=== PATIENT | female | born 1925 | race Caucasian/White ===

== ENCOUNTER 2016-11-08 11:04 | Inpatient (IN) | payer OTHER ==
[~2016-11-08] VITALS: Ht 161.3 cm; Wt 75.2 kg
[~2016-11-08 11:04] MED LIST: ESTR1CRE PV; FELO10TA2 PO; HYDR-4188 EX; LORA-741 PO; PRED10TA PO
[2016-11-08] MEDS ORDERED: SODIUM CHLORIDE 0.9% 1000ML 1,000 ML IV SCH (11:13)
--- NOTE | 2016-11-08 11:19 | EMERGENCY ROOM VISIT NOTE ---
History Report prepared by Maryanne: Ernesto Noble Under the Supervision of: Dr. Parish Adame D.O. First contact with patient: 11:05 Stated Complaint: HEADACHE History of Present Illness The patient is a 89 year old female who presents to the Emergency Room with complaints of a sudden headache beginning one hour prior to arrival. As per daughter, the patient woke up fine and was laughing and talking with family. She states the patient was sitting in a chair, when she complained of a sudden headache on the left side of her head at 10AM. 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 She states the patient took her medication this morning. The daughter associates the patient experiencing slurred speech with today's symptoms. She states the patient has a history of hypertension, polymyalgia rheumatica that she takes prednisone for, and hyperlipidemia. EMS denies the patient experiencing seizure-like activity. The daughter denies the patient having a previous stroke. The patient denies abdominal pain, chest pain, shortness of breath, nausea, and vomiting. The daughter denies the patient experiencing recent falls or recent illness. Source of History: patient Onset: one hour [employer] Position: head Quality: ache Timing: other (sudden) Associated Symptoms: + headache, No SOB, No abdominal pain, No chest pain, No nausea, No vomiting Note: Associated symptoms: slurred speech. Review of Systems See HPI for pertinent positives & negatives. A total of 10 systems reviewed and were otherwise negative. Past Medical & Surgical Medical Problems: (1) Hyperlipidemia (2) Hypertension (3) Neurological symptoms (4) Polymyalgia rheumatica (5) Pulmonary embolism Surgical Problems: (1) Previous back surgery (2) S/P appendectomy (3) S/P hysterectomy Family History Patient reports no known family medical history. Social History Smoking Status: Never Smoker Marital Status: Occupation Status: retired Current/Historical Medications Scheduled Apixaban (Eliquis), 5 MG PO BID Citalopram Hydrobromide (Celexa), 10 MG PO DAILY Estrogens, Conjugated Vaginal (Premarin), 0.5 GM PV 2XWK Felodipine (Plendil), 10 MG PO QAM Hydrocortisone (Topical) (Monistat Soothing Care It), 1 DOSE EX QAM Lorazepam (Ativan), 0.5 MG PO BID Omeprazole (Prilosec), 20 MG PO DAILY Prednisone Tab (Prednisone), 12 MG PO DAILY Scheduled PRN Furosemide (Lasix), 20 MG PO DAILY PRN for fluid accumulation Hydrocodon/Acetaminophen 5MG/300MG (Vicodin (5MG/300MG)), 1 TAB PO Q6H PRN for Pain Allergies Coded Allergies: Beta Adrenergic Blockers (Verified Allergy, Severe, SEVERE DROP IN BP AND HR, 06/26/15) Morphine and Related (Verified Allergy, Severe, DROP IN BP/PULSE - EMS CALLED ONCE AT HOME, 06/26/15) Nitrofurantoin (Verified Allergy, Severe, DROP IN BP AND PULSE, 06/26/15) Vitamin B12 (Verified Allergy, Severe, RED RASH AND NUMB FACIAL EFFECT ALONG WITH KOTZEBUE, 06/26/15) Penicillins (Verified Allergy, Intermediate, red facial rash and numb face , 06/26/15) Sulfa Antibiotics (Verified Allergy, Intermediate, RED FACIAL RASH AND NUMBNESS AND KOTZEBUE AFFECT, 06/26/15) Physical Exam Vital Signs Date Time Temp Pulse Resp B/P Pulse Ox O2 Delivery O2 Flow Rate FiO2 11/08/16 13:00 100 20 131/59 98 11/08/16 12:00 96 16 151/84 97 Room Air 11/08/16 11:54 103 21 96 11/08/16 11:50 97 Room Air 11/08/16 11:49 98 33 97 11/08/16 11:45 101 26 157/90 97 Room Air 11/08/16 11:44 98 29 97 11/08/16 11:39 101 33 98 11/08/16 11:37 156/81 11/08/16 11:29 96 27 98 11/08/16 11:27 100 11/08/16 11:24 171/89 11/08/16 11:11 36.7 110 24 182/128 96 Room Air Physical Exam GENERAL: Patient is awake, alert, and somewhat inappropriate. Follows commands but slowly. EYES: The conjunctivae are clear. The pupils are round and reactive. EARS, NOSE, MOUTH AND THROAT: The nose is without any evidence of any deformity. Mucous membranes are moist tongue is midline. There was no tenderness over temporal arteries. NECK: The neck is nontender and supple. RESPIRATORY: Normal respiratory effort is noted there is no evidence of wheezing rhonchi or rales CARDIOVASCULAR: Regular rate and rhythm noted there no murmurs rubs or gallops normal S1 normal S2 GASTROINTESTINAL: The abdomen is soft. Bowel sounds are present in all quadrants. Abdomen is nontender MUSCULOSKELETAL/EXTREMITIES: There is no evidence of gross deformity full range of motion is noted in the hips and shoulders SKIN: Trace pedal edema bilaterally. There is no obvious evidence of any rash. There are no petechiae, pallor or cyanosis noted. NEUROLOGIC: Patient is oriented to person, place, but not time or situation. Strength was symmetric. There was no facial droop. Speech was clear but inappropriate at times. Medical Decision & Procedures ER Provider Diagnostic Interpretation: Radiology results as stated below per my review and radiologist interpretation: CT OF THE HEAD WITHOUT CONTRAST CLINICAL HISTORY: Stroke. Headache. COMPARISON STUDY: No previous studies for comparison. CT DOSE: 537.48 mGy.cm TECHNIQUE: Helical axial images of the head were obtained without IV contrast. Automated exposure control was utilized for the study. FINDINGS: No acute intracranial hemorrhage, midline shift or mass effect is present. Ventricular system is unremarkable for age. Basilar cisterns are patent. There are no extra-axial collections. Scattered white matter hypodensities suggests small vessel disease. There are no findings to suggest acute dural sinus thrombosis or acute territorial infarct. There are no significant calvarial abnormalities. Visualized portions of the sinuses and mastoid air cells are clear. IMPRESSION: No acute intracranial findings. Electronically signed by: Santo Bishop M.D. 11/08/2016 11:30 AM CHEST ONE VIEW PORTABLE CLINICAL HISTORY: Stroke. COMPARISON STUDY: No previous studies for comparison. FINDINGS: Lung volumes are normal. Lungs are clear. There is no evidence of pulmonary edema. Cardiac size is at the upper limits of normal. There is no pneumothorax or pleural effusion. IMPRESSION: No acute cardiopulmonary findings. Electronically signed by: Santo Bishop M.D. 11/08/2016 11:45 AM Laboratory Results Test 11/08/16 11:15 11/08/16 11:26 11/08/16 12:19 Erythrocyte Sedimentation Rate 32 mm/hr (0-21) Prothrombin Time 11.1 SECONDS (9.0-12.0) Prothromb Time International Ratio 1.0 (0.9-1.1) Activated Partial Thromboplast Time 26.8 SECONDS (21.0-31.0) Partial Thromboplastin Ratio 1.0 Estimated Average Glucose 143 mg/dl Hemoglobin A1c 6.6 % (4.5-5.6) Total Creatine Kinase 172 U/L (26-192) C-Reactive Protein < 0.29 mg/dl (0-0.29) Bedside Prothrombin Time INR 1.2 (0.9-1.1) Bedside Glucose 132 mg/dl (70-90) Urine Color YELLOW Urine Appearance CLEAR (CLEAR) Urine pH 7.0 (4.5-7.5) Urine Specific [place] 1.011 (1.000-1.030) Urine Protein NEG (NEG) Urine Glucose (UA) NEG (NEG) Urine Ketones NEG (NEG) Urine Occult Blood NEG (NEG) Urine Nitrite POS (NEG) Urine Bilirubin NEG (NEG) Urine Urobilinogen NEG (NEG) Urine Leukocyte Esterase MODERATE (NEG) Urine WBC (Auto) 10-30 /hpf (0-5) Urine RBC (Auto) 0-4 /hpf (0-4) Urine Hyaline Casts (Auto) 1-5 /lpf (0-5) Urine Epithelial Cells (Auto) 5-10 /lpf (0-5) Urine Bacteria (Auto) 3+ (NEG) Urine Opiates Screen NEG (NEG) Urine Methadone, Qualitative NEG (NEG) Urine Barbiturates NEG (NEG) Urine Phencyclidine (PCP) Level NEG (NEG) Ur Amphetamine/Methamphetamine NEG (NEG) MDMA (Ecstasy) Screen NEG (NEG) Urine Benzodiazepines Screen NEG (NEG) Urine Cocaine Metabolite NEG (NEG) Urine Marijuana (THC) NEG (NEG) Laboratory results per my review. Medications Administered Medications (Trade) Dose Ordered Sig/Esvin Route Start Time Stop Time Status Last Admin Dose Admin Sodium Chloride (Nss 1000ml) 1,000 ml @ 50 mls/hr Q20H IV 11/08/16 11:13 11/08/16 15:36 DC 11/08/16 12:01 50 MLS/HR Acetaminophen (Tylenol Tab) 650 mg Q4H PRN PO 11/08/16 12:45 12/08/16 12:44 11/09/16 09:50 650 MG ECG Indication: altered mental status Rate (beats per minute): 96 Rhythm: normal sinus Findings: no ectopy, other (no acute ST segment abnormalities) Comparison ECG Date: no prior available ED Course 1109: The patient was evaluated in room C6. A complete history and physical examination were performed. 1113: Ordered Sodium Chloride 1,000 ml @ 50 mls/hr IV. 1123: I spoke to Tran Cool Neurology about the patient's case, and he will evaluate the patient via TeleStroke. 1211: I spoke to Tran Cool about the patients case, and he does not recommend TPA at this time. He recommends further workup for the patients headache. 1220: [facility], and she will follow the patient for further evaluation. Medical Decision Differential diagnosis: Etiologies such as metabolic, infection, hypo/hyperglycemia, electrolyte abnormalities, cardiac sources, intracerebral event, toxicologic, neurologic, as well as others were entertained. Nursing notes reviewed. Additional history is obtained from the prehospital personnel. Additional history is obtained from the patient's family members. The patient is an 89-year-old female who presented to the emergency department for an evaluation of possible stroke. The patient had an acute onset of left- sided headache. She was also noted to have a facial droop and difficulty speaking by her family members. The patient was brought to the emergency department by ambulance for possible stroke. We did not make the patient a stroke alert because she currently takes a liquids and took her last dose this morning. She would not be a candidate for TPA at this time. The patient's symptoms improved prior to arrival because she had no facial droop or focal neurologic deficit. She still appeared to have some difficulty speaking. The patient was reevaluated multiple times. Initial CAT scan did not reveal any signs of acute hemorrhagic CVA. I discussed his case with the tele stroke neurologist at [facility]. At this time I did not recommend TPA. The patient was also treated with IV fluids and IV antibiotics for presumed urinary tract infection. [facility] They've agreed to evaluate the patient in emergency department for further management and disposition. Consults Time Called: 1209 Consulting Physician: Tran Cool Neurology Returned Call: 1210 1123: I spoke to Tran Cool about the patient's case, and he will evaluate the patient via TeleStroke. 1211: I spoke to Dr. Peñaloza [place] [facility] about the patients case, and he does not recommend TPA at this time. He recommends further workup for the patients headache. Additional Consults: Time Called: 1214 Consulted Physician: Karissa Matos PA-C ([facility] Hospitalist) Returned Call: 1220 Additional Comments: I spoke to Karissa Matos PA-C ([facility] Hospitalist) about the patients case , and she will follow the patient for further evaluation. Impression Primary Impression: Altered mental status Additional Impressions: CVA (cerebral vascular accident) UTI (urinary tract infection) Scribe Attestation The scribe's documentation has been prepared under my direction and personally reviewed by me in its entirety. I confirm that the note above accurately reflects all work, treatment, procedures, and medical decision making performed by me. Departure Information Dispostion Being Evaluated By Hospitalist (Karissa Matos PA-C ([facility] Hospitalist)) Referrals Luis Enrique Norris M.D. (PCP) Stroke History Time Last Known Well 1000 on 11/08/2016 Stroke t-PA Criteria Reviewed Does NOT meet criteria for t-PA Reason t-PA Not Given Contraindicated (due to anticoagulation use) Problem Qualifiers Primary Impression: Altered mental status Altered mental status type: unspecified Qualified Codes: R41.82 - Altered mental status, unspecified Additional Impressions: CVA (cerebral vascular accident) CVA mechanism: unspecified Qualified Codes: I63.9 - Cerebral infarction, unspecified UTI (urinary tract infection) Urinary tract infection type: acute cystitis Hematuria presence: without hematuria Qualified Codes: N30.00 - Acute cystitis without hematuria
--- NOTE | 2016-11-08 11:31 | DIAGNOSTIC IMAGING REPORT ---
CT OF THE HEAD WITHOUT CONTRAST CLINICAL HISTORY: Stroke. Headache. COMPARISON STUDY: No previous studies for comparison. CT DOSE: 537.48 mGy.cm TECHNIQUE: Helical axial images of the head were obtained without IV contrast. Automated exposure control was utilized for the study. FINDINGS: No acute intracranial hemorrhage, midline shift or mass effect is present. Ventricular system is unremarkable for age. Basilar cisterns are patent. There are no extra-axial collections. Scattered white matter hypodensities suggests small vessel disease. There are no findings to suggest acute dural sinus thrombosis or acute territorial infarct. There are no significant calvarial abnormalities. Visualized portions of the sinuses and mastoid air cells are clear. IMPRESSION: No acute intracranial findings. Electronically signed by: Santo Bishop M.D. 11/08/2016 11:30 AM Dictated Date/Time: 11/08/2016 11:27 AM
[2016-11-08 11:45] LABS: BASO % 0.5 %; BASO ABS # 0.05 K/uL (0-0.2); COMPLETE YES; EOS % 1.1 %; HEMATOCRIT 36.1 % (37-47); IG% 0.2 %; LYMPH % 16.6 %; LYMPH ABS # 1.55 K/uL (1.2-3.4); MEAN CELL VOLUME 73.4 fL (80-100); MEAN CORPUSCULAR HEMOGLOBIN 23.6 pg (25-34); MEAN CORPUSCULAR HGB CONC 32.1 g/dl (32-36); MEAN PLATELET VOLUME 8.5 fL (7.4-10.4); MONO % 4.2 %; NEUT % 77.4 %; PLATELET COUNT 421 K/uL (130-400); RED BLOOD COUNT 4.92 M/uL (4.2-5.4); WHITE BLOOD COUNT 9.32 K/uL (4.8-10.8)
--- NOTE | 2016-11-08 11:46 | DIAGNOSTIC IMAGING REPORT ---
CHEST ONE VIEW PORTABLE CLINICAL HISTORY: Stroke. COMPARISON STUDY: No previous studies for comparison. FINDINGS: Lung volumes are normal. Lungs are clear. There is no evidence of pulmonary edema. Cardiac size is at the upper limits of normal. There is no pneumothorax or pleural effusion. IMPRESSION: No acute cardiopulmonary findings. Electronically signed by: Santo Bishop M.D. 11/08/2016 11:45 AM Dictated Date/Time: 11/08/2016 11:43 AM
[2016-11-08 11:59] LABS: PROTHROMBIN TIME (PATIENT) 11.1 SECONDS (9.0-12.0)
[2016-11-08 12:04] LABS: BLOOD UREA NITROGEN 13 mg/dl (7-18); BUN/CREATININE RATIO 15.1 (10-20); CALCIUM 9.4 mg/dl (8.5-10.1); CARBON DIOXIDE 25 mmol/L (21-32); CHLORIDE 106 mmol/L (98-107); CREATININE 0.84 mg/dl (0.60-1.20); GLUCOSE 137 mg/dl (70-99); SODIUM 140 mmol/L (136-145)
[2016-11-08 12:08] LABS: C-REACTIVE PROTEIN < 0.29 mg/dl (0-0.29); CKMB/CK RATIO 0.7 (0-3.0)
[2016-11-08 12:43] LABS: URINE APPEARANCE CLEAR (CLEAR); URINE BILIRUBIN NEG (NEG); URINE COLOR YELLOW; URINE NITRITE POS (NEG); URINE SPECIFIC GRAVITY 1.011 (1.000-1.030); UROBILINOGEN NEG (NEG); ZZURINE CULT IF INDIC CATH YES
[2016-11-08 12:45] LABS: MANUAL MICROSCOPIC REQUIRED? NO; REVIEW REQ? NO
[2016-11-08] MEDS ORDERED: ACETAMINOPHEN 325 MG TAB PO PRN (12:45)
[2016-11-08] MEDS ORDERED: PHARMACIST DISCHARGE MED REC CONSULT PRN (12:45)
[2016-11-08] MEDS ORDERED: NITROGLYCERIN 0.4 MG SL PER TAB CHARGE SL PRN (12:45)
[2016-11-08] MEDS ORDERED: ONDANSETRON INJ 2 MG/ML 2 ML VIAL IV PRN (12:45)
[2016-11-08] MEDS ORDERED: CEFTRIAXONE SOD INJ 1 GM in DEXTROSE 5% ADD-VANTAGE 50ML 50 ML IV SCH (13:00)
[2016-11-08 13:04] LABS: BENZODIAZEPINE, URINE NEG (NEG); COCAINE,URINE NEG (NEG); PHENCYCLIDINE, URINE NEG (NEG)
[2016-11-08 13:07] LABS: ESTIMATED AVERAGE GLUCOSE 143 mg/dl; HA1C FLAG Normal (Normal)
[2016-11-08] MEDS ORDERED: ACETAMINOPHEN 325 MG TAB ONE (13:26)
[2016-11-08] MEDS ORDERED: OMEP20CA9 PO (13:44)
[2016-11-08] MEDS ORDERED: CITA10TA8 PO (13:44)
[2016-11-08] MEDS ORDERED: PRED10TA PO (13:44)
[2016-11-08] MEDS ORDERED: FURO-85 PO (13:44)
[2016-11-08] MEDS ORDERED: LORA-741 PO (13:44)
[2016-11-08] MEDS ORDERED: HYDR-3419 PO (13:44)
[2016-11-08] MEDS ORDERED: OPTIRAY 320 IV PRN (13:45)
[2016-11-08] MEDS ORDERED: APIX1TAB3 PO (13:51)
--- NOTE | 2016-11-08 13:55 | Progress Note ---
Progress Note Date of Service Nov 08, 2016. Progress Note ATTENDING ADDENDUM care coordinated with MARIA E Matos please refer to her notes for full details, I agree with her notes patient seen and examined, records reviewed by myself as well on exam, patient seen laying in bed, alert, oriented in good spirits denies any weakness, numbness reports left sided headache/facial/neck pain back to baseline as per family denies chest pain, dyspnea, dizziness, nausea no other symptoms VS noted and reviewed oriented x 2, not in distress, speaks in sentences with no effort nor accessory muscle use normal rate, regular rhythm, no murmurs clear breath sounds bilaterally non distended, soft, nontender no bipedal edema, erythema, warmth oriented x 2, CN 2-12 grossly intact, motor 5/5, sensation 100% WBC 9.[address] head no acute process ASSESSMENT/PLAN> 89 year old female with history of PE on Eliquis, PMR on Chronic Prednisone, presenting with episode of slurred speech and confusion. TIA SYMPTOMS R/O ACUTE CVA - initial CT head negative - now back to baseline as per family - MRI brain, CT angio head and neck hold felodipine add Aspirin continue Eliquis - discussed above with Dr. Garcia LEFT SIDED HEADACHE PMR ON CHRONIC PREDNISONE - ESR 32 obtain outpatient baseline ESR - ff up imaging - increase prednisone from 12mg daily to 40mg daily for now HISTORY OF PE ON ELIQUIS - continue Eliquis other diagnoses and plan of care as per MARIA E Matos's notes Edwin Garcia MD
--- NOTE | 2016-11-08 13:55 | History and Physical ---
History & Physical Date & Time of Service: Nov 08, 2016 at 12:57 Chief Complaint: Headache Primary Care Physician: Luis Enrique Norris M.D. History of Present Illness Source: patient This is an 89 y/o female with PMHx of PE on Eliquis, PMR on chronic prednisone, HTN, Dyslipidemia and other problems as outlined below who presents to the ED c/ o sudden onset of headache that began prior to arrival. Pt is unsure of why she is in the hospital but does complain of L head and neck pain. There is no family at bedside therefore history is obtained from previous documentation. Per ED physician note, the patient was feeling fine when she first woke up this morning. Around 10AM, patient was sitting in a chair when she developed acute onset L sided head pain. This was followed by slurred speech and confusion. Pt has no history of CVA. She has a history of PE on Eliquis. Pt denies fever/ chills, diaphoresis, visual changes, chest pain, SOB, abd pain, N/V, bowel or bladder issues, LE edema, calf pain, lightheadedness/dizziness, difficulty swallowing, facial droop, unilateral weakness. In the ED, pt was tachy and hypertensive (BP 180s/120s). Labs reviewed are unremarkable. CT head is negative. UA 3+ bacteria and + nitrites. Pt will be admitted for further evaluation and treatment. Past Medical/Surgical History Medical Problems: (1) Hyperlipidemia Status: Chronic (2) Hypertension Status: Chronic (3) Polymyalgia rheumatica Status: Chronic (4) Pulmonary embolism Status: Resolved Surgical Problems: (1) Previous back surgery Status: Resolved (2) S/P appendectomy Status: Resolved (3) S/P hysterectomy Status: Resolved Family History Patient reports no known family medical history. Social History Smoking Status: Never Smoker Alcohol Use: none Drug Use: none Marital Status: Occupational Status: retired Immunizations History of Influenza Vaccine: Yes Influenza Vaccine Date: Sep 06, 2011 History of Tetanus Vaccine?: Unknown History of Pneumococcal: Yes History of Hepatitis B Vaccine: No Allergies Coded Allergies: Beta Adrenergic Blockers (Verified Allergy, Severe, SEVERE DROP IN BP AND HR, 06/26/15) Morphine and Related (Verified Allergy, Severe, DROP IN BP/PULSE - EMS CALLED ONCE AT HOME, 06/26/15) Nitrofurantoin (Verified Allergy, Severe, DROP IN BP AND PULSE, 06/26/15) Vitamin B12 (Verified Allergy, Severe, RED RASH AND NUMB FACIAL EFFECT ALONG WITH RAMONA, 06/26/15) Penicillins (Verified Allergy, Intermediate, red facial rash and numb face , 06/26/15) Sulfa Antibiotics (Verified Allergy, Intermediate, RED FACIAL RASH AND NUMBNESS AND RAMONA AFFECT, 06/26/15) Home Medications Scheduled Apixaban (Eliquis), 5 MG PO BID Citalopram Hydrobromide (Celexa), 10 MG PO DAILY Estrogens, Conjugated Vaginal (Premarin), 0.5 GM PV 2XWK Felodipine (Plendil), 10 MG PO QAM Hydrocortisone (Topical) (Monistat Soothing Care It), 1 DOSE EX QAM Lorazepam (Ativan), 0.5 MG PO BID Omeprazole (Prilosec), 20 MG PO DAILY Prednisone Tab (Prednisone), 12 MG PO DAILY Scheduled PRN Furosemide (Lasix), 20 MG PO DAILY PRN for fluid accumulation Hydrocodon/Acetaminophen 5MG/300MG (Vicodin (5MG/300MG)), 1 TAB PO Q6H PRN for Pain Review of Systems Constitutional: + weakness, No chills, No fatigue, No fever, No sweats Eyes: No diplopia, No worsening of vision ENT: No hearing loss Respiratory: No shortness of breath Cardiovascular: No chest pain Abdomen: No constipation, No diarrhea, No nausea, No pain, No vomiting Musculoskeletal: No calf pain, No swelling Genitourinary - Female: No dysuria Neurologic: + problem reported (headache), + weakness (generalized), No balance problems, No numbness/tingling, No paralysis, No vertigo Psychiatric: No depression symptoms Endocrine: + fatigue Hematologic / Lymphatic: No abnormal bleeding/bruising Integumentary: No new/changing skin lesions Physical Exam Vital Signs Date Time Temp Pulse Resp B/P Pulse Ox O2 Delivery O2 Flow Rate FiO2 11/08/16 12:00 96 16 151/84 97 Room Air 11/08/16 11:54 103 21 96 11/08/16 11:50 97 Room Air 11/08/16 11:49 98 33 97 11/08/16 11:45 101 26 157/90 97 Room Air 11/08/16 11:44 98 29 97 11/08/16 11:39 101 33 98 11/08/16 11:37 156/81 11/08/16 11:29 96 27 98 11/08/16 11:27 100 11/08/16 11:24 171/89 11/08/16 11:11 36.7 110 24 182/128 96 Room Air General Appearance: WD/WN, no apparent distress, + pertinent finding (Pt is laying comfortably in bed ) Head: normocephalic, atraumatic Eyes: normal inspection, PERRL, EOMI ENT: hearing grossly normal Neck: supple Respiratory/Chest: chest non-tender, lungs clear, normal breath sounds, no respiratory distress Cardiovascular: regular rate, rhythm, no edema, no murmur Abdomen/GI: normal bowel sounds, non tender, soft Back: normal inspection Extremities/Musculoskelatal: normal inspection, no calf tenderness, no pedal edema Neurologic/Psych: wellness director II-XII nml as tested, no motor/sensory deficits, alert, normal mood/affect, oriented x 3 Skin: normal color, warm/dry Diagnostics Laboratory Results Results Past 24 Hours Test 11/08/16 11:15 11/08/16 11:26 11/08/16 12:19 Range/Units White Blood Count 9.32 4.8-10.8 K/uL Red Blood Count 4.92 4.2-5.4 M/uL Hemoglobin 11.6 12.0-16.0 g/dL Hematocrit 36.1 37-47 % Mean Corpuscular Volume 73.4 80-100 fL Mean Corpuscular Hemoglobin 23.6 25-34 pg Mean Corpuscular Hemoglobin Concent 32.1 32-36 g/dl Platelet Count 421 130-400 K/uL Mean Platelet Volume 8.5 7.4-10.4 fL Neutrophils (%) (Auto) 77.4 % Lymphocytes (%) (Auto) 16.6 % Monocytes (%) (Auto) 4.2 % Eosinophils (%) (Auto) 1.1 % Basophils (%) (Auto) 0.5 % Neutrophils # (Auto) 7.21 1.4-6.5 K/uL Lymphocytes # (Auto) 1.55 1.2-3.4 K/uL Monocytes # (Auto) 0.39 0.11-0.59 K/uL Eosinophils # (Auto) 0.10 0-0.5 K/uL Basophils # (Auto) 0.05 0-0.2 K/uL RDW Standard Deviation 47.8 36.4-46.3 fL RDW Coefficient of Variation 17.7 11.5-14.5 % Immature Granulocyte % (Auto) 0.2 % Immature Granulocyte # (Auto) 0.02 0.00-0.02 K/uL Erythrocyte Sedimentation Rate 32 0-21 mm/hr Prothrombin Time 11.1 9.0-12.0 SECONDS Prothromb Time International Ratio 1.0 0.9-1.1 Activated Partial Thromboplast Time 26.8 21.0-31.0 SECONDS Partial Thromboplastin Ratio 1.0 Sodium Level 140 136-145 mmol/L Potassium Level 4.0 3.5-5.1 mmol/L Chloride Level 106 98-107 mmol/L Carbon Dioxide Level 25 21-32 mmol/L Anion Gap 9.0 3-11 mmol/L Blood Urea Nitrogen 13 7-18 mg/dl Creatinine 0.84 0.60-1.20 mg/dl Estimated GFR () 71.4 Estimated GFR (Non- 61.6 BUN/Creatinine Ratio 15.1 10-20 Random Glucose 137 70-99 mg/dl Calcium Level 9.4 8.5-10.1 mg/dl Total Creatine Kinase 172 26-192 U/L Creatine Kinase MB 1.2 0.5-3.6 ng/ml Creatine Kinase MB Ratio 0.7 0-3.0 Troponin I < 0.015 0-0.045 ng/ml C-Reactive Protein < 0.29 0-0.29 mg/dl Bedside Prothrombin Time INR 1.2 0.9-1.1 Bedside Glucose 132 70-90 mg/dl Urine Color YELLOW Urine Appearance CLEAR CLEAR Urine pH 7.0 4.5-7.5 Urine Specific Minto 1.011 1.000-1.030 Urine Protein NEG NEG Urine Glucose (UA) NEG NEG Urine Ketones NEG NEG Urine Occult Blood NEG NEG Urine Nitrite POS NEG Urine Bilirubin NEG NEG Urine Urobilinogen NEG NEG Urine Leukocyte Esterase MODERATE NEG Urine WBC (Auto) 10-30 0-5 /hpf Urine RBC (Auto) 0-4 0-4 /hpf Urine Hyaline Casts (Auto) 1-5 0-5 /lpf Urine Epithelial Cells (Auto) 5-10 0-5 /lpf Urine Bacteria (Auto) 3+ NEG Microbiology Results 11/08/16 Urine Culture, Received Pending Diagnostic Radiology CXR IMPRESSION: No acute cardiopulmonary findings. CT HEAD IMPRESSION: No acute intracranial findings. EKG EKG: NSR at 96 bpm with no acute ischemic changes noted; no previous EKG available for comparison Impression Assessment and Plan NEUROLOGIC SXS; R/O CVA pt presents with sudden onset L sided headache followed by slurred speech -admit to telemetry -possible complex migraine vs. CVA -RFs include h/o blood clot, HTN and Dyslipidemia -head CT is negative; obtain MRI brain and MRA head and neck for further evaluation -obtain echo to r/o any cardiac abnormalities -neuro checks q4h -fasting lipids in AM -start ASA and statin -PT/OT -consult speech to evaluate swallowing -NPO until speech eval is complete -Pt is not a candidate for Tpa at this time as she is on Eliquis -consult neuro, Dr. Garcia-pending input -allow for permissive HTN in setting of possible CVA -continue to monitor HEADACHE -sudden onset L sided headache -start Prednisone 40mg for possible temporal arteritis -CT head negative -monitor HYPERTENSIVE URGENCY WITH UNDERLYING H/O HTN -BP 182/128 on arrival; now BP 150s/80s -? if contributing to neuro sxs -hold Plendil for now -monitor UTI -pt is afebrile with no leukocytosis -UA 3+ bacteria and + nitrites -urine cx-pending -start aztreonam -pt denies urinary sxs POLYMYALGIA RHEUMATICA -cont prednisone GERD -cont PPI DYSLIPIDEMIA -diet-controlled -check fasting lipid panel DVT PROPHYLAXIS -cont Eliquis CODE STATUS -FULL CODE status per discussion with patient upon admission DISPO Pt was seen in collaboration with Dr. Garcia. Please see his addendum for further details. Thanks! -Of note: patient will be followed by Dr. Aragon starting tomorrow AM. VTE Prophylaxis VTE Risk Assessment Done? Y/N: Yes Risk Level: Moderate
--- NOTE | 2016-11-08 14:16 | DIAGNOSTIC IMAGING REPORT ---
MRI OF THE BRAIN WITHOUT CONTRAST CLINICAL HISTORY: Neurologic symptoms. Sudden onset headache. Evaluate for stroke. COMPARISON STUDY: Head CT November 08, 2016. TECHNIQUE: Utilizing a 1.5 Reny magnet and dedicated coil, multiplanar, multiecho imaging of the brain was performed without IV contrast. FINDINGS: There are no areas of restricted diffusion. No acute intracranial hemorrhage, midline shift or mass effect is present. Mild ventricular dilatation is likely due to atrophy and is proportional to sulcal enlargement. The basilar cisterns are patent. There are no extra-axial collections. Flow-voids for the major intracranial vessels are present. Multiple white matter T2 hyperintense foci likely reflect mild small vessel disease. No intracranial masses are identified on this unenhanced exam. Orbits are unremarkable. There is no fluid within the mastoid air cells. There is no significant mucosal thickening of the sinuses. There is a 2 cm ill-defined T1 hypointense, slightly T2 hyperintense right frontal bone lesion shown on axial image 18 of 22. This focus is not evident on the head CT. Note is made of a smaller adjacent 9 mm T1 hypointense lesion within the right frontal bone shown image 16 of 22. There may be a small lesion within the left frontal bone is well. IMPRESSION: 1. No acute intracranial findings. 2. Mild atrophy and small vessel disease. 3. Several calvarial lesions, the largest of which is a 2 cm right frontal bone lesion. These are indeterminate and correlation with history of malignancy is recommended. Differential considerations include malignant and benign etiologies. A nonemergent whole-body bone scan might be considered for further evaluation. Electronically signed by: Santo Bishop M.D. 11/08/2016 2:15 PM Dictated Date/Time: 11/08/2016 2:06 PM
--- NOTE | 2016-11-08 14:17 | DIAGNOSTIC IMAGING REPORT ---
MRA OF THE INTRACRANIAL CIRCULATION WITHOUT CONTRAST CLINICAL HISTORY: Possible stroke. Headaches. COMPARISON STUDY: Head CT performed earlier today. TECHNIQUE: Utilizing a 1.5 Reny magnet and 3-D [id number] technique, unenhanced MRA of the intracranial circulation was obtained. FINDINGS: This exam is mildly compromised by motion artifact. The bilateral M1, M2, A1 and A2 segments are patent. There is no abrupt vessel cut off or intracranial aneurysm. The basilar artery may be fenestrated. The posterior circulation is intact. There is a left posterior communicating artery and an anterior communicating artery. No intracranial aneurysm is identified. IMPRESSION: 1. No abrupt vessel cut off or intracranial aneurysm identified. 2. Study mildly compromised by motion artifact. Electronically signed by: Santo Bishop M.D. 11/08/2016 2:16 PM Dictated Date/Time: 11/08/2016 2:01 PM
[2016-11-08] MEDS ORDERED: IV FLUIDS COMPLETED PRN (14:30)
--- NOTE | 2016-11-08 14:54 | DIAGNOSTIC IMAGING REPORT ---
CT ANGIOGRAPHY OF THE NECK WITH CONTRAST CLINICAL HISTORY: Stroke symptoms. COMPARISON STUDY: No previous studies for comparison. Technique: CT angiography of the carotid and vertebral arteries was obtained using [employer] 320 IV and 3D reconstruction on an independent workstation. NASCET criteria was utilized. CT DOSE: 433.57 mGy.cm Findings: There is mild plaque within both proximal internal carotid arteries without significant stenosis. The origins of the bilateral common carotid and vertebral arteries are patent. There is no dissection within the major vasculature of the neck. There is no cervical lymphadenopathy. There are multiple thyroid nodules. Lung apices are clear. IMPRESSION: No significant stenosis or dissection within the bilateral common carotid, internal carotid or vertebral arteries. Electronically signed by: Santo Bishop M.D. 11/08/2016 2:53 PM Dictated Date/Time: 11/08/2016 2:47 PM
--- NOTE | 2016-11-08 14:57 | DIAGNOSTIC IMAGING REPORT ---
CTA ANGIOGRAPHY OF THE HEAD CLINICAL HISTORY: Stroke symptoms. Headache. COMPARISON STUDY: Head CT and MRI of the brain performed earlier today. TECHNIQUE: Helical axial images of the head were obtained following uneventful intravenous administration of 93 cc of Optiray 320. FINDINGS: The bilateral M1, M2, A1 and A2 segments are patent. There is moderate plaque within both cavernous carotids without significant stenosis. There is moderate plaque within the proximal intracranial portion of the left vertebral artery. There is mild stenosis of this vessel. No abrupt vessel cut off is identified within the intracranial peoria lesion. No intracranial aneurysm is identified. The basilar artery is fenestrated. There is a left posterior communicating artery and an anterior communicating artery. Ventricular dilatation is likely due to atrophy. IMPRESSION: No abrupt cut off or intracranial aneurysm. Unremarkable CTA of the head for age. Electronically signed by: Santo Bishop M.D. 11/08/2016 2:55 PM Dictated Date/Time: 11/08/2016 2:53 PM
[2016-11-08 15:13] VITALS: BP 162/79; PULSE 95; TEMP 37; O2SAT 93; Ht 161.3 cm; Wt 75.2 kg
[2016-11-08] MEDS ORDERED: PATIENT'S HEIGHT AND/OR WEIGHT NEEDED SCH (15:15)
[2016-11-08] MEDS ORDERED: CLONIDINE HCL 0.1 MG TAB PO PRN (15:45)
[2016-11-08 16:00] VITALS: O2SAT 93
[2016-11-08] MEDS ORDERED: ASPIRIN 81 MG ECTAB PO ONE (16:00)
[2016-11-08] MEDS: AZTREONAM IV 1,000 MG in DEXTROSE 5% 100ML 100 ML IV SCH (16:25)
[2016-11-08 19:40] VITALS: BP 178/92; PULSE 91; TEMP 36.8; O2SAT 93
[2016-11-08] MEDS ORDERED: APIXABAN 2.5 MG TAB PO SCH (21:00)
[2016-11-08] MEDS: LORAZEPAM 0.5 MG TAB PO SCH (21:54)
[2016-11-08] MEDS: APIXABAN 2.5 MG TAB PO SCH (21:54)
[2016-11-08 23:18] VITALS: BP 164/83; PULSE 85; TEMP 36.8; O2SAT 93
[2016-11-09] VITALS (9 sets, daily range): BP systolic 130–172; BP diastolic 67–90; PULSE 69–84; TEMP 36.6–36.8; O2SAT 93–97
[2016-11-09] MEDS: AZTREONAM IV 1,000 MG in DEXTROSE 5% 100ML 100 ML IV SCH ×3 (00:28→16:01)
[2016-11-09 07:15] LABS: BASO % 0.7 %; BASO ABS # 0.04 K/uL (0-0.2); COMPLETE YES; EOS % 0.3 %; HEMATOCRIT 32.9 % (37-47); IG% 0.2 %; LYMPH % 31.8 %; LYMPH ABS # 1.92 K/uL (1.2-3.4); MEAN CELL VOLUME 75.1 fL (80-100); MEAN CORPUSCULAR HEMOGLOBIN 23.3 pg (25-34); MEAN PLATELET VOLUME 8.7 fL (7.4-10.4); MONO % 9.3 %; NEUT % 57.7 %; PLATELET COUNT 365 K/uL (130-400); RED BLOOD COUNT 4.38 M/uL (4.2-5.4); WHITE BLOOD COUNT 6.03 K/uL (4.8-10.8)
[2016-11-09 07:41] LABS: BUN/CREATININE RATIO 16.2 (10-20); CALCIUM 8.7 mg/dl (8.5-10.1); CREATININE 0.77 mg/dl (0.60-1.20); POTASSIUM 3.8 mmol/L (3.5-5.1)
[2016-11-09 07:44] LABS: CHOLESTEROL/HDL RATIO 2.6
[2016-11-09] MEDS: LORAZEPAM 0.5 MG TAB PO SCH ×2 (08:29→21:37)
[2016-11-09] MEDS: APIXABAN 2.5 MG TAB PO SCH ×2 (08:30→21:37)
[2016-11-09] MEDS: ASPIRIN 81 MG ECTAB PO SCH (08:30)
[2016-11-09] MEDS: PANTOprazole SOD 40 MG TAB PO SCH (08:30)
[2016-11-09] MEDS: CITALOPRAM 20 MG TAB PO SCH (08:32)
[2016-11-09] MEDS: ATORVASTATIN 40 MG TAB PO SCH (08:32)
--- NOTE | 2016-11-09 12:55 | CONSULTATION REPORT ---
DATE OF CONSULTATION: 11/09/2016 CONSULTATION FOR: Dr. Aragon. HISTORY OF PRESENT ILLNESS: Hannah is an 89-year-old woman followed in [facility] who was admitted to the hospital for evaluation of vague confusion and sudden onset of right-sided headache. She was a little confused when she arrived about why she was in the hospital and denied any real issues, but she apparently was feeling well on awakening yesterday morning and then developed some vague visual changes, sweating, malaise and a headache. It does occur in the setting of a longstanding remote history of severe migraines and the patient admits that perhaps on occasion in the past, she had some visual issues with them. PAST MEDICAL HISTORY: Her past medical history; however, reveals some dyslipidemia, hypertension, polymyalgia rheumatica on chronic steroids, pulmonary embolism on Eliquis and status post back surgery, appendectomy, and hysterectomy. Evaluation in the ER included a negative CT scan and subsequent MR imaging studies and angiography has revealed no significant extracranial/intracranial disease or recent strokes. She did have a urinalysis suggestive of a urinary tract infection which she says she has had in the past and does have 100,000 colonies of E. coli, now on her current culture. SOCIAL HISTORY: Reveals her to be a never smoker. She does not use alcohol. She is . She lives in a type of family compound in a single dwelling but with ready access to other family members. IMMUNIZATIONS: Up-to-date. ALLERGIES: She HAS ALLERGIES TO BETA BLOCKERS, MORPHINE, NITROFURANTOIN, VITAMIN B12, PENICILLIN AND SULFA. CURRENT MEDICATIONS: Include Eliquis, Celexa, estrogens, felodipine, hydrocortisone, lorazepam, omeprazole, and prednisone 12 mg daily. P.r.n. medications include Lasix and oxycodone and acetaminophen for pain. REVIEW OF SYSTEMS: System review was difficult for me to obtain due to hearing issue, but according to the review in the ER, there have been no recent fevers, sweats, chills. No new issues involving head, eyes, ears, nose and throat other than the headache. There have been no cardiovascular, pulmonary, gastrointestinal, genitourinary, or musculoskeletal issues. Neurologically, she does not recall having any stroke. She does have a hearing loss. She has had the history of migraines which occasional visual aura in the remote past and apparently then they were quite severe and frequent. PHYSICAL EXAMINATION: VITAL SIGNS: Blood pressure is 151/84, pulse was 96, respirations 16. HEENT: She had no deformities on examination of head, eyes, ears, nose and throat. GENERAL: She appeared to be comfortable. NECK: There were no carotid bruits. LUNGS: Clear. HEART: Had a regular rhythm. ABDOMEN: No abdominal masses were felt. EXTREMITIES: She is with little or no peripheral edema. Pulses were good. NEUROLOGIC: Today, she is awake, alert, oriented superficially. She really cannot name her primary care physician at this point and she knows she is in [facility]. Again, there is a significant degree of hearing impairment that interferes a little bit with history taking. Eye movements are normal. There is no scalp tenderness. There is no temporal artery nodularity, facial motility and strength is normal. Facial sensation is normal. Ocular fundi are poorly seen. Speech is clear. She does have a slight tremor of the head and hands, which she states is longstanding and there is no significant superimposed cerebellar dysmetria on [id number] and point to point testing. I do not see any choreiform activity. Reflexes are hypoactive throughout. Toes are downgoing. No Prasad signs are seen. Strength is normal to gross testing and sensory examination reveals little vibratory loss over the feet, distally. IMPRESSION AND RECOMMENDATIONS: At this point, we have no evidence to suggest this woman has had a vascular event. I wonder if this is not a urinary tract related toxic headache, occurring in the setting of longstanding remote migraine headaches. She does have a slightly elevated sed rate, a normal CRP and on imaging studies may have some calvarial abnormalities that could possibly reflect metastatic disease or an entity such as myeloma. I have asked for a serum protein electrophoresis just to evaluate this latter possibility, but from a neurologic point of view at this time, I see no reason to do any further investigation and would treat the urinary tract infection and see how her headaches do. Will continue to follow along for a bit, just to see if she is going to need any other intervention for head pain. Right now, she is headache free. 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 RIN
--- NOTE | 2016-11-09 13:15 | ECHOCARDIOGRAM REPORT ---
*NOTICE TO RECEIVING [facility] This information is strictly Confidential and protected under [place] law. [place] law prohibits you from making any further disclosure of this information unless further disclosure is expressly permitted by the written consent of the person to whom it pertains or is authorized by law. A general authorization for the release of medical or other information is not sufficient for this purpose. Hospital accepts no responsibility if the information is made available to any other person, INCLUDING THE PATIENT. Interpretation Summary * Name: JESSE DIMAS Study Date: 11/09/2016 07:28 AM BP: 130/72 mmHg * Patient Location: C.2T\S\S240\S\2 HR: 75 * : 1925 (M/d/yyyy) Gender: Female Height: 64 in * Age: 89 yrs Ethnicity: CA Weight: 166 lb * Ordering Physician: Karissa Matos * Performed By: Saskia Ramirez * * Reason For Study: STROKE R/O * BSA: 1.8 m2 * The study was technically adequate. * There is no comparison study available. * -- Conclusions -- * Ejection Fraction = 65-70%. * There is mild concentric left ventricular hypertrophy. * There is mild mitral annular calcification. * There is mild mitral regurgitation. * There is mild tricuspid regurgitation. * Grade I diastolic dysfunction, (abnormal relaxation pattern). * Injection of contrast documented no interatrial shunt. Procedure Details * A complete two-dimensional transthoracic echocardiogram was performed (2D, M-mode, Doppler and color flow Doppler). * A saline contrast injection was performed to assess for cardiac shunting. * The injection was performed through an intravenous line in the left arm. * The attending nurse who injected the saline contrast was VIANEY JEFFERSON RN. * A total of 20 cc of agitated saline was given. Left Ventricle * The left ventricle is normal in size. * There is mild concentric left ventricular hypertrophy. * The basal septum is thickened and angulated consistent with sigmoid septum. * Ejection Fraction = 65-70%. * Left ventricular systolic function is normal. * The left ventricular wall motion is normal. Right Ventricle * The right ventricle is normal size. * The right ventricular systolic function is normal as assessed by tricuspid annular plane systolic excursion (TAPSE) (normal >1.5 cm). Atria * The left atrium is mildly dilated. * Right atrial size is normal. * Injection of contrast documented no interatrial shunt. Mitral Valve * There is mild mitral annular calcification. * The mitral valve leaflets appear thickened, but open well. * There is no mitral valve stenosis. * There is mild mitral regurgitation. Tricuspid Valve * The tricuspid valve is normal. * There is no tricuspid stenosis. * There is mild tricuspid regurgitation. * Doppler findings do not suggest pulmonary hypertension. Aortic Valve * The aortic valve is trileaflet. * Aortic stenosis is absent. * There is no significant aortic regurgitation. Pulmonic Valve * The pulmonary valve is inadequately visualized, but the Doppler data is adequate for interpretation. * There is no pulmonic valvular stenosis. * Trace pulmonic valvular regurgitation. Great Vessels * The aortic root is normal size. Pericardium/Pleural * There is no pericardial effusion. Great Vessels * Normal inferior vena cava diameter and respiratory variation suggests normal central venous pressure. Left Ventricular Diastolic Function * Grade I diastolic dysfunction, (abnormal relaxation pattern). MMode 2D Measurements and Calculations IVSd 1.7 cm IVSs 2.3 cm LVIDd 3.3 cm LVIDs 1.9 cm LVPWd 1.4 cm LVPWs 2.3 cm IVS/LVPW 1.2 FS 42.7 % EDV(Teich) 45.1 ml ESV(Teich) 11.3 ml EF(Teich) 74.9 % EDV(cubed) 37.0 ml ESV(cubed) 7.0 ml EF(cubed) 81.1 % % IVS thick 36.0 % % LVPW thick 62.3 % LV mass(C)d 190.0 grams LV mass(C)dI 105.2 grams/m\S\2 LV mass(C)s 221.6 grams LV mass(C)sI 122.6 grams/m\S\2 SV(Teich) 33.8 ml SI(Teich) 18.7 ml/m\S\2 SV(cubed) 30.0 ml SI(cubed) 16.6 ml/m\S\2 ACS 1.2 cm LA dimension 4.0 cm asc Aorta Diam 3.6 cm LVOT diam 1.9 cm LVOT area 2.9 cm\S\2 LVAd ap4 26.2 cm\S\2 LVLd ap4 7.6 cm EDV(MOD-sp4) 74.4 ml EDV(sp4-el) 77.1 ml LVAs ap4 12.1 cm\S\2 LVLs ap4 6.5 cm ESV(MOD-sp4) 19.9 ml ESV(sp4-el) 19.1 ml EF(MOD-sp4) 73.2 % EF(sp4-el) 75.2 % LVAd ap2 20.0 cm\S\2 LVLd ap2 7.8 cm EDV(MOD-sp2) 43.9 ml EDV(sp2-el) 43.9 ml LVAs ap2 8.8 cm\S\2 LVLs ap2 6.0 cm ESV(MOD-sp2) 12.2 ml ESV(sp2-el) 10.9 ml EF(MOD-sp2) 72.2 % EF(sp2-el) 75.1 % LVLd %diff 2.4 % EDV(MOD-bp) 57.4 ml LVLs %diff -7.42 % ESV(MOD-bp) 16.0 ml EF(MOD-bp) 72.2 % SV(MOD-sp4) 54.5 ml SI(MOD-sp4) 30.2 ml/m\S\2 SV(MOD-sp2) 31.7 ml SI(MOD-sp2) 17.5 ml/m\S\2 SV(MOD-bp) 41.4 ml SI(MOD-bp) 22.9 ml/m\S\2 SV(sp4-el) 57.9 ml SI(sp4-el) 32.1 ml/m\S\2 SV(sp2-el) 32.9 ml SI(sp2-el) 18.2 ml/m\S\2 Doppler Measurements and Calculations MV E max alma 67.9 cm/sec MV A max alma 86.8 cm/sec MV E/A 0.78 MV dec time 0.19 sec Ao V2 max 97.1 cm/sec Ao max PG 3.8 mmHg Ao max PG (full) 1.2 mmHg KATI(V,A) 2.4 cm\S\2 KATI(V,D) 2.4 cm\S\2 AI max alma 285.8 cm/sec AI max PG 32.7 mmHg AI dec slope 72.4 cm/sec\S\2 AI P1/2t 1156.6 msec LV V1 max PG 2.6 mmHg LV V1 max 80.4 cm/sec MR max alma 601.6 cm/sec MR max PG 145.9 mmHg PA V2 max 61.5 cm/sec PA max PG 1.5 mmHg PI end-d alma 124.2 cm/sec TR max alma 271.9 cm/sec
--- NOTE | 2016-11-09 18:45 | Progress Note ---
Subjective Date of Service: Nov 09, 2016. Subjective Pt evaluation today including: conversation w/ patient, physical exam, lab review, review of studies, review of inpatient medication list Saw/examined the patient in room 240 She is not sure why she came in, states she has a headache oriented to person and place No slurring speech, no facial droop Mild resting tremor at baseline Problem List Medical Problems: (1) Altered mental status Status: Acute (2) CVA (cerebral vascular accident) Status: Acute (3) UTI (urinary tract infection) Status: Acute Review of Systems Constitutional: No chills, No fever, No weakness Respiratory: No cough, No shortness of breath, No sputum Cardiac: No chest pain, No edema, No palpitations Abdomen: No diarrhea, No nausea, No pain, No vomiting Medications Current Inpatient Medications Medications (Trade) Dose Ordered Sig/Esvin Route Start Time Stop Time Status Last Admin Dose Admin Atorvastatin Calcium (Lipitor Tab) 40 mg QAM PO 11/09/16 09:00 12/09/16 08:59 11/09/16 08:32 40 MG Aspirin (Ecotrin Tab) 81 mg QAM PO 11/09/16 09:00 12/09/16 08:59 11/09/16 08:30 81 MG Miscellaneous Information (Pharmacist Discharge Med Rec Consult) 1 ea UD PRN N/A 11/08/16 12:45 12/08/16 12:44 Acetaminophen (Tylenol Tab) 650 mg Q4H PRN PO 11/08/16 12:45 12/08/16 12:44 11/09/16 09:50 650 MG Ondansetron HCl (Zofran Inj) 4 mg Q6H PRN IV 11/08/16 12:45 12/08/16 12:44 Nitroglycerin (Nitrostat Tab) 0.4 mg UD PRN SL 11/08/16 12:45 12/08/16 12:44 Ioversol 125 ml 125 ml UD PRN IV 11/08/16 13:45 11/12/16 13:44 Aztreonam/Dextrose (Azactam IV/D5 100ml) 110 ml @ 100 mls/hr Q8H IV 11/08/16 16:00 11/13/16 13:44 11/09/16 16:01 100 MLS/HR Citalopram Hydrobromide (celeXA TAB) 10 mg DAILY PO 11/09/16 09:00 12/09/16 08:59 11/09/16 08:32 10 MG Lorazepam (Ativan Tab) 0.5 mg BID PO 11/08/16 21:00 12/08/16 20:59 11/09/16 08:29 0.5 MG Miscellaneous Information (Order Awaiting Action) 1 ea QS N/A 11/08/16 16:00 12/08/16 15:59 Pantoprazole Sodium (Protonix Tab) 40 mg DAILY PO 11/09/16 09:00 12/09/16 08:59 11/09/16 08:30 40 MG Miscellaneous (Iv Fluids Completed) 1 ea PRN PRN N/A 11/08/16 14:30 11/08/17 14:29 Prednisone (PredniSONE TAB) 40 mg DAILY PO 11/09/16 09:00 12/09/16 08:59 11/09/16 08:30 40 MG Clonidine HCl (Catapres Tab) 0.1 mg Q6H PRN PO 11/08/16 15:45 12/08/16 15:44 Apixaban (Eliquis Tab) 5 mg BID PO 11/08/16 21:00 12/08/16 20:59 11/09/16 08:30 5 MG Objective Vital Signs Date Time Temp Pulse Resp B/P Pulse Ox O2 Delivery O2 Flow Rate FiO2 11/09/16 16:00 93 Room Air 11/09/16 15:34 36.7 78 20 170/75 93 Room Air 11/09/16 12:00 93 Room Air 11/09/16 11:54 36.8 69 22 172/90 96 Room Air 11/09/16 08:00 93 Room Air 11/09/16 07:37 36.6 72 22 153/80 94 Room Air 11/09/16 04:00 Room Air 11/09/16 03:57 36.7 75 19 130/72 97 Room Air 11/08/16 23:59 Room Air 11/08/16 23:18 36.8 85 18 164/83 93 Room Air 11/08/16 20:00 Room Air 11/08/16 19:40 36.8 91 20 178/92 93 Room Air Physical Exam General Appearance: no apparent distress Respiratory/Chest: chest non-tender, lungs clear, normal breath sounds, no respiratory distress, no accessory muscle use Cardiovascular: regular rate, rhythm, no edema, no murmur Abdomen: normal bowel sounds, non tender, soft Extremities: normal inspection, no pedal edema Neurologic/Psychiatric: alert, + disoriented (mild disorientation, oriented x 2 ) Laboratory Results Last 24 Hours Test 11/08/16 23:00 11/08/16 23:18 11/09/16 06:51 Creatine Kinase MB Ratio Creatine Kinase MB 1.5 ng/ml Troponin I < 0.015 ng/ml White Blood Count 6.03 K/uL Red Blood Count 4.38 M/uL Hemoglobin 10.2 g/dL Hematocrit 32.9 % Mean Corpuscular Volume 75.1 fL Mean Corpuscular Hemoglobin 23.3 pg Mean Corpuscular Hemoglobin Concent 31.0 g/dl Platelet Count 365 K/uL Mean Platelet Volume 8.7 fL Neutrophils (%) (Auto) 57.7 % Lymphocytes (%) (Auto) 31.8 % Monocytes (%) (Auto) 9.3 % Eosinophils (%) (Auto) 0.3 % Basophils (%) (Auto) 0.7 % Neutrophils # (Auto) 3.48 K/uL Lymphocytes # (Auto) 1.92 K/uL Monocytes # (Auto) 0.56 K/uL Eosinophils # (Auto) 0.02 K/uL Basophils # (Auto) 0.04 K/uL RDW Standard Deviation 49.6 fL RDW Coefficient of Variation 17.9 % Immature Granulocyte % (Auto) 0.2 % Immature Granulocyte # (Auto) 0.01 K/uL Sodium Level 141 mmol/L Potassium Level 3.8 mmol/L Chloride Level 109 mmol/L Carbon Dioxide Level 25 mmol/L Anion Gap 7.0 mmol/L Blood Urea Nitrogen 12 mg/dl Creatinine 0.77 mg/dl Est Creatinine Clear Calc Drug Dose 48.6 ml/min Estimated GFR () 79.3 Estimated GFR (Non- 68.5 BUN/Creatinine Ratio 16.2 Random Glucose 100 mg/dl Calcium Level 8.7 mg/dl Triglycerides Level 95 mg/dl Cholesterol Level 216 mg/dl HDL Cholesterol 83 mg/dl LDL Cholesterol, Calculated 114 mg/dl VLDL Cholesterol, Calculated 19 mg/dl Cholesterol/HDL Ratio 2.6 Assessment and Plan This is an 89 year old female with PMH of polymyalgia rheumatic on chronic prednisone, PE on Eliquis, HTN, HLD, hx. of migraines, presents with some confusion and slurred speech Metabolic Encephalopathy secondary to UTI urine cx positive for E. coli confusion/disorientation possibly related to UTI sensitivities pending currently on Azactam Migraines r/o CVA appreciate neurology input Head CT, Brain MRI, CTA head/neck negative will monitor overnight Hx. of PE continue Apixaban Polymyalgia Rheumatica prednisone 40mg taper down back to home dose DVT ppx Apixaban FULL CODE
[2016-11-10] VITALS (7 sets, daily range): BP systolic 144–179; BP diastolic 73–83; PULSE 80–96; TEMP 36.5–37.1; O2SAT 92–97
[2016-11-10] MEDS: AZTREONAM IV 1,000 MG in DEXTROSE 5% 100ML 100 ML IV SCH ×4 (00:20→23:47)
[2016-11-10 06:54] LABS: BASO % 0.4 %; BASO ABS # 0.03 K/uL (0-0.2); COMPLETE YES; EOS % 1.8 %; HEMATOCRIT 32.9 % (37-47); IG% 0.4 %; LYMPH % 38.9 %; LYMPH ABS # 2.66 K/uL (1.2-3.4); MEAN CELL VOLUME 74.4 fL (80-100); MEAN CORPUSCULAR HEMOGLOBIN 23.3 pg (25-34); MEAN CORPUSCULAR HGB CONC 31.3 g/dl (32-36); MEAN PLATELET VOLUME 8.4 fL (7.4-10.4); MONO % 9.5 %; PLATELET COUNT 368 K/uL (130-400); RED BLOOD COUNT 4.42 M/uL (4.2-5.4); WHITE BLOOD COUNT 6.83 K/uL (4.8-10.8)
[2016-11-10 07:27] LABS: BUN/CREATININE RATIO 19.3 (10-20); CALCIUM 8.6 mg/dl (8.5-10.1); CREATININE 0.8 mg/dl (0.60-1.20); POTASSIUM 3.7 mmol/L (3.5-5.1)
[2016-11-10] MEDS: CITALOPRAM 20 MG TAB PO SCH (07:38)
[2016-11-10] MEDS: PANTOprazole SOD 40 MG TAB PO SCH (07:38)
[2016-11-10] MEDS: ATORVASTATIN 40 MG TAB PO SCH (07:38)
[2016-11-10] MEDS: APIXABAN 2.5 MG TAB PO SCH ×2 (07:38→20:19)
[2016-11-10] MEDS: ASPIRIN 81 MG ECTAB PO SCH (07:39)
[2016-11-10] MEDS: LORAZEPAM 0.5 MG TAB PO SCH ×2 (09:00→20:25)
--- NOTE | 2016-11-10 12:18 | Progress Note ---
Subjective Date of Service: Nov 10, 2016. Subjective Pt evaluation today including: conversation w/ patient, physical exam, lab review, review of studies, review of inpatient medication list Saw/examined the patient in room 240 +confusion today cannot recall her name She knows she lives alone and family lives nearby; tells me she has two sons and a daughter who are involved with care Denies headaches Problem List Medical Problems: (1) Altered mental status Status: Acute (2) CVA (cerebral vascular accident) Status: Acute (3) UTI (urinary tract infection) Status: Acute Review of Systems ENT: + problem reported (denies headaches) Respiratory: No shortness of breath Cardiac: No chest pain Difficult to obtain due to patient's confusion Medications Current Inpatient Medications Medications (Trade) Dose Ordered Sig/Esvin Route Start Time Stop Time Status Last Admin Dose Admin Atorvastatin Calcium (Lipitor Tab) 40 mg QAM PO 11/09/16 09:00 12/09/16 08:59 11/10/16 07:38 40 MG Aspirin (Ecotrin Tab) 81 mg QAM PO 11/09/16 09:00 12/09/16 08:59 11/10/16 07:39 81 MG Acetaminophen (Tylenol Tab) 650 mg Q4H PRN PO 11/08/16 12:45 12/08/16 12:44 11/09/16 09:50 650 MG Ondansetron HCl (Zofran Inj) 4 mg Q6H PRN IV 11/08/16 12:45 12/08/16 12:44 Nitroglycerin (Nitrostat Tab) 0.4 mg UD PRN SL 11/08/16 12:45 12/08/16 12:44 Ioversol 125 ml 125 ml UD PRN IV 11/08/16 13:45 11/12/16 13:44 Aztreonam/Dextrose (Azactam IV/D5 100ml) 110 ml @ 100 mls/hr Q8H IV 11/08/16 16:00 11/13/16 13:44 11/10/16 08:50 100 MLS/HR Citalopram Hydrobromide (celeXA TAB) 10 mg DAILY PO 11/09/16 09:00 12/09/16 08:59 11/10/16 07:38 10 MG Lorazepam (Ativan Tab) 0.5 mg BID PO 11/08/16 21:00 12/08/16 20:59 11/09/16 21:37 0.5 MG Miscellaneous Information (Order Awaiting Action) 1 ea QS N/A 11/08/16 16:00 12/08/16 15:59 Pantoprazole Sodium (Protonix Tab) 40 mg DAILY PO 11/09/16 09:00 12/09/16 08:59 11/10/16 07:38 40 MG Miscellaneous (Iv Fluids Completed) 1 ea PRN PRN N/A 11/08/16 14:30 11/08/17 14:29 Prednisone (PredniSONE TAB) 40 mg DAILY PO 11/09/16 09:00 12/09/16 08:59 11/10/16 07:38 40 MG Clonidine HCl (Catapres Tab) 0.1 mg Q6H PRN PO 11/08/16 15:45 12/08/16 15:44 Apixaban (Eliquis Tab) 5 mg BID PO 11/08/16 21:00 12/08/16 20:59 11/10/16 07:38 5 MG Objective Vital Signs Date Time Temp Pulse Resp B/P Pulse Ox O2 Delivery O2 Flow Rate FiO2 11/10/16 11:35 36.9 80 20 144/73 95 Room Air 11/10/16 08:00 Room Air 11/10/16 07:38 36.8 82 20 179/77 95 Room Air 11/10/16 04:10 37.1 81 16 150/81 97 11/10/16 04:00 Room Air 11/09/16 23:59 83 165/67 11/09/16 23:59 Room Air 11/09/16 20:00 Room Air 11/09/16 19:31 36.8 84 20 163/81 96 Room Air 11/09/16 16:00 93 Room Air 11/09/16 15:34 36.7 78 20 170/75 93 Room Air 11/09/16 12:00 93 Room Air Physical Exam General Appearance: no apparent distress, + pertinent finding (laying comfortably; confused, underlying dementia? 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, alert, + disoriented Laboratory Results Last 24 Hours Test 11/10/16 06:26 White Blood Count 6.83 K/uL Red Blood Count 4.42 M/uL Hemoglobin 10.3 g/dL Hematocrit 32.9 % Mean Corpuscular Volume 74.4 fL Mean Corpuscular Hemoglobin 23.3 pg Mean Corpuscular Hemoglobin Concent 31.3 g/dl Platelet Count 368 K/uL Mean Platelet Volume 8.4 fL Neutrophils (%) (Auto) 49.0 % Lymphocytes (%) (Auto) 38.9 % Monocytes (%) (Auto) 9.5 % Eosinophils (%) (Auto) 1.8 % Basophils (%) (Auto) 0.4 % Neutrophils # (Auto) 3.34 K/uL Lymphocytes # (Auto) 2.66 K/uL Monocytes # (Auto) 0.65 K/uL Eosinophils # (Auto) 0.12 K/uL Basophils # (Auto) 0.03 K/uL RDW Standard Deviation 48.6 fL RDW Coefficient of Variation 17.8 % Immature Granulocyte % (Auto) 0.4 % Immature Granulocyte # (Auto) 0.03 K/uL Sodium Level 142 mmol/L Potassium Level 3.7 mmol/L Chloride Level 108 mmol/L Carbon Dioxide Level 26 mmol/L Anion Gap 8.0 mmol/L Blood Urea Nitrogen 15 mg/dl Creatinine 0.80 mg/dl Est Creatinine Clear Calc Drug Dose 45.6 ml/min Estimated GFR () 75.8 Estimated GFR (Non- 65.4 BUN/Creatinine Ratio 19.3 Random Glucose 81 mg/dl Calcium Level 8.6 mg/dl Assessment and Plan This is an 89 year old female with PMH of polymyalgia rheumatic on chronic prednisone, PE on Eliquis, HTN, HLD, hx. of migraines, presents with some confusion and slurred speech Metabolic Encephalopathy secondary to UTI 4/3 continue Azactam Switch to oral medications when she is doing better 4/2 urine cx positive for E. coli confusion/disorientation possibly related to UTI sensitivities pending currently on Azactam Migraines r/o CVA 4/3 awaiting neuro input patient seems to be more confused today likely underlying dementia + sundowning 4/2 appreciate neurology input Head CT, Brain MRI, CTA head/neck negative will monitor overnight Hx. of PE continue Apixaban Polymyalgia Rheumatica prednisone 40mg taper down back to home dose DVT ppx Apixaban FULL CODE
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
[2016-11-11] VITALS (8 sets, daily range): BP systolic 120–182; BP diastolic 53–86; PULSE 72–80; TEMP 36.4–37; O2SAT 90–96
[2016-11-11 07:27] LABS: BASO % 0.3 %; BASO ABS # 0.02 K/uL (0-0.2); COMPLETE YES; EOS % 1.2 %; IG% 0.6 %; LYMPH % 39.9 %; LYMPH ABS # 2.69 K/uL (1.2-3.4); MEAN CELL VOLUME 74.2 fL (80-100); MEAN CORPUSCULAR HEMOGLOBIN 23.7 pg (25-34); MEAN CORPUSCULAR HGB CONC 31.9 g/dl (32-36); MEAN PLATELET VOLUME 8.4 fL (7.4-10.4); MONO % 9.1 %; NEUT % 48.9 %; PLATELET COUNT 317 K/uL (130-400); RED BLOOD COUNT 4.18 M/uL (4.2-5.4); WHITE BLOOD COUNT 6.74 K/uL (4.8-10.8)
[2016-11-11] MEDS: CITALOPRAM 20 MG TAB PO SCH (07:46)
[2016-11-11] MEDS: ASPIRIN 81 MG ECTAB PO SCH (07:47)
[2016-11-11] MEDS: APIXABAN 2.5 MG TAB PO SCH (07:47)
[2016-11-11] MEDS: ATORVASTATIN 40 MG TAB PO SCH (07:47)
[2016-11-11] MEDS: PANTOprazole SOD 40 MG TAB PO SCH (07:49)
[2016-11-11 07:50] LABS: BUN/CREATININE RATIO 23.9 (10-20); CALCIUM 8.3 mg/dl (8.5-10.1); CREATININE 0.7 mg/dl (0.60-1.20); POTASSIUM 3.8 mmol/L (3.5-5.1)
[2016-11-11] MEDS: LORAZEPAM 0.5 MG TAB PO SCH (07:51)
[2016-11-11] MEDS: AZTREONAM IV 1,000 MG in DEXTROSE 5% 100ML 100 ML IV SCH (08:46)
--- NOTE | 2016-11-11 12:32 | Progress Note ---
Subjective Date of Service: Nov 11, 2016. Subjective Pt evaluation today including: conversation w/ patient, conversation w/ family , physical exam, lab review, review of studies, conversation w/ client insights consultant, review of inpatient medication list Saw/examined the patient in room 240 She's doing well, no problems/issues to note Not confused this morning spoke with family members - she has episodes of confusion in the morning at home at times Problem List Medical Problems: (1) Altered mental status Status: Acute (2) CVA (cerebral vascular accident) Status: Acute (3) UTI (urinary tract infection) Status: Acute Review of Systems Constitutional: No chills, No fever Respiratory: No shortness of breath Cardiac: No chest pain Abdomen: No diarrhea, No nausea, No pain, No vomiting Female : No dysuria, No urinary frequency Neurologic: No balance problems, No memory loss, No numbness/tingling, No vertigo, No weakness Medications Current Inpatient Medications Medications (Trade) Dose Ordered Sig/Esvin Route Start Time Stop Time Status Last Admin Dose Admin Atorvastatin Calcium (Lipitor Tab) 40 mg QAM PO 11/09/16 09:00 12/09/16 08:59 11/11/16 07:47 40 MG Aspirin (Ecotrin Tab) 81 mg QAM PO 11/09/16 09:00 12/09/16 08:59 11/11/16 07:47 81 MG Acetaminophen (Tylenol Tab) 650 mg Q4H PRN PO 11/08/16 12:45 12/08/16 12:44 11/09/16 09:50 650 MG Ondansetron HCl (Zofran Inj) 4 mg Q6H PRN IV 11/08/16 12:45 12/08/16 12:44 Nitroglycerin (Nitrostat Tab) 0.4 mg UD PRN SL 11/08/16 12:45 12/08/16 12:44 Ioversol 125 ml 125 ml UD PRN IV 11/08/16 13:45 11/12/16 13:44 Aztreonam/Dextrose (Azactam IV/D5 100ml) 110 ml @ 100 mls/hr Q8H IV 11/08/16 16:00 11/13/16 13:44 11/11/16 08:46 100 MLS/HR Citalopram Hydrobromide (celeXA TAB) 10 mg DAILY PO 11/09/16 09:00 12/09/16 08:59 11/11/16 07:46 10 MG Lorazepam (Ativan Tab) 0.5 mg BID PO 11/08/16 21:00 12/08/16 20:59 11/11/16 07:51 0.5 MG Miscellaneous Information (Order Awaiting Action) 1 ea QS N/A 11/08/16 16:00 12/08/16 15:59 Pantoprazole Sodium (Protonix Tab) 40 mg DAILY PO 11/09/16 09:00 12/09/16 08:59 11/11/16 07:49 40 MG Miscellaneous (Iv Fluids Completed) 1 ea PRN PRN N/A 11/08/16 14:30 11/08/17 14:29 Prednisone (PredniSONE TAB) 40 mg DAILY PO 11/09/16 09:00 12/09/16 08:59 11/11/16 07:46 40 MG Clonidine HCl (Catapres Tab) 0.1 mg Q6H PRN PO 11/08/16 15:45 12/08/16 15:44 11/11/16 00:36 0.1 MG Apixaban (Eliquis Tab) 5 mg BID PO 11/08/16 21:00 12/08/16 20:59 11/11/16 07:47 5 MG Objective Vital Signs Date Time Temp Pulse Resp B/P Pulse Ox O2 Delivery O2 Flow Rate FiO2 11/11/16 12:00 95 Room Air 11/11/16 11:58 36.5 80 18 120/70 96 Room Air 11/11/16 08:30 37.0 76 18 120/68 91 11/11/16 08:00 92 Room Air 11/11/16 04:00 92 Room Air 11/11/16 03:34 36.4 72 21 163/86 94 Room Air 11/11/16 00:04 36.4 80 20 182/53 90 Room Air 11/10/16 23:59 92 Room Air 11/10/16 20:17 36.6 83 18 163/83 93 Room Air 11/10/16 20:00 92 Room Air 11/10/16 15:54 Room Air 11/10/16 15:18 36.5 96 20 171/78 92 Room Air Physical Exam General Appearance: no apparent distress Respiratory/Chest: lungs clear, normal breath sounds, no respiratory distress, no accessory muscle use Cardiovascular: regular rate, rhythm, no edema, no murmur Neurologic/Psychiatric: alert, normal mood/affect, oriented x 3 Skin: normal color Laboratory Results Last 24 Hours Test 11/11/16 07:06 White Blood Count 6.74 K/uL Red Blood Count 4.18 M/uL Hemoglobin 9.9 g/dL Hematocrit 31.0 % Mean Corpuscular Volume 74.2 fL Mean Corpuscular Hemoglobin 23.7 pg Mean Corpuscular Hemoglobin Concent 31.9 g/dl Platelet Count 317 K/uL Mean Platelet Volume 8.4 fL Neutrophils (%) (Auto) 48.9 % Lymphocytes (%) (Auto) 39.9 % Monocytes (%) (Auto) 9.1 % Eosinophils (%) (Auto) 1.2 % Basophils (%) (Auto) 0.3 % Neutrophils # (Auto) 3.30 K/uL Lymphocytes # (Auto) 2.69 K/uL Monocytes # (Auto) 0.61 K/uL Eosinophils # (Auto) 0.08 K/uL Basophils # (Auto) 0.02 K/uL RDW Standard Deviation 48.3 fL RDW Coefficient of Variation 17.8 % Immature Granulocyte % (Auto) 0.6 % Immature Granulocyte # (Auto) 0.04 K/uL Sodium Level 141 mmol/L Potassium Level 3.8 mmol/L Chloride Level 108 mmol/L Carbon Dioxide Level 25 mmol/L Anion Gap 8.0 mmol/L Blood Urea Nitrogen 17 mg/dl Creatinine 0.70 mg/dl Est Creatinine Clear Calc Drug Dose 53.5 ml/min Estimated GFR () 89.0 Estimated GFR (Non- 76.8 BUN/Creatinine Ratio 23.9 Random Glucose 82 mg/dl Calcium Level 8.3 mg/dl Assessment and Plan This is an 89 year old female with PMH of polymyalgia rheumatic on chronic prednisone, PE on Eliquis, HTN, HLD, hx. of migraines, presents with some confusion and slurred speech Metabolic Encephalopathy secondary to UTI 11/11 will switch abx. to Cefuroxime x 5 days to follow-up with urology on January 29 @ 9:15AM with Dr. Rodríguez 11/10 continue Azactam Switch to oral medications when she is doing better 11/09 urine cx positive for E. coli confusion/disorientation possibly related to UTI sensitivities pending currently on Azactam Migraines r/o CVA / awaiting neuro input patient seems to be more confused today likely underlying dementia + sundowning 11/09 appreciate neurology input Head CT, Brain MRI, CTA head/neck negative will monitor overnight Hx. of PE continue Apixaban Polymyalgia Rheumatica prednisone 40mg taper down back to home dose DVT ppx Apixaban FULL CODE
[2016-11-11] MEDS ORDERED: CFT250 PO (12:35)
--- NOTE | 2016-11-11 12:38 | Discharge Instructions ---
Discharge Instructions Date of Service Nov 11, 2016. Admission Reason for Admission: Neurological Symptoms Discharge Discharge Diagnosis / Problem: Dementia/confusion, metabolic encephalopathy seconadry to UTI Discharge Goals Goal(s): Decrease discomfort, Improve function, Diagnostic testing, Therapeutic intervention Activity Recommendations Activity Limitations: resume your previous activity . Instructions / Follow-Up Instructions / Follow-Up Please follow-up with your primary care physician on You have an appointment with Dr. Rodríguez on January 29 @ 9:15AM - possible chronic antibiotics to prevent future UTIs For now, you will be prescribed Ceftin 250mg twice a day for five days ( antibiotic) Current Hospital Diet Patient's current hospital diet: AHA Diet (Heart Healthy) Discharge Diet Recommended Diet: AHA Diet (Heart Healthy) Pending Studies Studies pending at discharge: no Laboratory Results Hemoglobin A1c Test 11/08/16 11:15 Range/Units Estimated Average Glucose 143 mg/dl Hemoglobin A1c 6.6 H 4.5-5.6 % Lipid Panel Test 11/09/16 06:51 Range/Units Triglycerides Level 95 0-150 mg/dl Cholesterol Level 216 H 0-200 mg/dl HDL Cholesterol 83 mg/dl Cholesterol/HDL Ratio 2.6 LDL Cholesterol, Calculated 114 mg/dl Medical Emergencies . Who to Call and When: Medical Emergencies: If at any time you feel your situation is an emergency, please call 911 immediately. . Non-Emergent Contact Non-Emergency issues call your: Primary Care Provider . . "Provider Documentation" section prepared by Diann Aragon. VTE Core Measure Inpt VTE Proph given/why not?: Other Anticoagulation (Eliquis)
--- NOTE | 2016-11-11 12:41 | Discharge Summary ---
Discharge Summary Date of Service Nov 11, 2016. Discharge Summary Admission Date: Nov 08, 2016 at 13:09 Discharge Date: Nov 11, 2016 Discharge Disposition: Home Principal Diagnosis: Metabolic Encephalopathy secondary to UTI Sundowning, Hospital Psychosis Medication Reconciliation New Medications: Cefuroxime Axetil (Cefuroxime Axetil) 250 Mg Tab 250 MG PO BID for 5 Days, #10 TABS Continued Medications: Apixaban (Eliquis) 5 Mg Tab 5 MG PO BID, TAB Citalopram Hydrobromide (Celexa) 10 Mg Tab 10 MG PO DAILY, TAB Estrogens, Conjugated Vaginal (Premarin) 0.625 Mg/ Cre 0.5 GM PV 2XWK for 30 Days, #45 GM 11 Refills Felodipine (Plendil) 10 Mg Tabcr 10 MG PO QAM, TAB Furosemide (Lasix) 20 Mg Tab 20 MG PO DAILY PRN for fluid accumulation, TAB Hydrocodon/Acetaminophen 5MG/300MG (Vicodin (5MG/300MG)) 1 Tab Tab 1 TAB PO Q6H PRN for Pain, TAB Hydrocortisone (Topical) (Monistat Soothing Care It) 1 % Cre 1 DOSE EX QAM Lorazepam (Ativan) 0.5 Mg Tab 0.5 MG PO BID, TAB Omeprazole (Prilosec) 20 Mg Cap 20 MG PO DAILY, CAP Prednisone Tab (Prednisone) 10 Mg Tab 12 MG PO DAILY, TAB Admission Information HPI (per Admitting provider): This is an 89 y/o female with PMHx of PE on Eliquis, PMR on chronic prednisone, HTN, Dyslipidemia and other problems as outlined below who presents to the ED c/ o sudden onset of headache that began prior to arrival. Pt is unsure of why she is in the hospital but does complain of L head and neck pain. There is no family at bedside therefore history is obtained from previous documentation. Per ED physician note, the patient was feeling fine when she first woke up this morning. Around 10AM, patient was sitting in a chair when she developed acute onset L sided head pain. This was followed by slurred speech and confusion. Pt has no history of CVA. She has a history of PE on Eliquis. Pt denies fever/ chills, diaphoresis, visual changes, chest pain, SOB, abd pain, N/V, bowel or bladder issues, LE edema, calf pain, lightheadedness/dizziness, difficulty swallowing, facial droop, unilateral weakness. In the ED, pt was tachy and hypertensive (BP 180s/120s). Labs reviewed are unremarkable. CT head is negative. UA 3+ bacteria and + nitrites. Pt will be admitted for further evaluation and treatment. 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 of migraines, presents with some confusion and slurred speech Metabolic Encephalopathy secondary to UTI 4/4 will switch abx. to Cefuroxime x 5 days to follow-up with urology on January 29 @ 9:15AM with Dr. Rodríguez 4/ continue Azactam Switch to oral medications when she is doing better 4/2 urine cx positive for E. coli confusion/disorientation possibly related to UTI sensitivities pending currently on Azactam Migraines r/o CVA 4/3 awaiting neuro input patient seems to be more confused today likely underlying dementia + 4/2 appreciate neurology input Head CT, Brain MRI, CTA head/neck negative will monitor overnight Hx. of PE continue Apixaban Polymyalgia Rheumatica prednisone 40mg taper down back to home dose DVT ppx Apixaban FULL CODE Total time spent on discharge = 40 minutes This includes examination of the patient, discharge planning, medication reconciliation, and communication with other providers. Discharge Instructions Please follow-up with your primary care physician on You have an appointment with Dr. Rodríguez on January 29 @ 9:15AM - possible chronic antibiotics to prevent future UTIs For now, you will be prescribed Ceftin 250mg twice a day for five days ( antibiotic)
--- NOTE | 2016-11-11 13:33 | CONSULTATION REPORT ---
DATE OF CONSULTATION: 11/11/2016 IDENTIFYING DATA: Hannah Lopez is an 89-year-old woman from [place], admitted to the hospital through the Emergency Room after presenting with acute right-sided head pain and concern for CVA. This consult is requested to evaluate change in mental status, psychosis. Information is gathered from the patient, the electronic medical record, and the patient's son, aCrlos, by phone. All are considered to be reliable. CHIEF COMPLAINT: "I feel fine." HISTORY OF PRESENT ILLNESS: Hannah Lopez is an 89-year-old woman with medical history significant for history of PE, on Eliquis, PMR, on chronic prednisone, hypertension, dyslipidemia, who presented to the Emergency Room with sudden onset of headache. The patient reported to the physicians in the ER that she woke up feeling fine that morning but had an acute onset of left-sided head pain while sitting in a chair. That was followed by slurred speech and confusion. In the Emergency Room, she was found to have a urinary tract infection which is currently being treated with antibiotics. She has been seen by neurology, CVA has been ruled out. She has been noted to be delirious with waxing and waning mentation. There are 2 references in the notes to patient making delusional statements. One has to do with a statement in the hospital, in which she said she was taken to the basement and choked at some point. There is a second reference to her having been at a doctor's appointment, making a paranoid statement which was confirmed to be untrue by the family member present. I have spoken with her son, Carlos, by phone. He says that there are some mornings when she wakes up feeling a bit confused but most mornings by the time he gets there, she is fully oriented and in good spirits. He sees no evidence of depression. He cannot add any other delusional or hallucinatory events at home. It is his experience that during those times, she was reoriented by family and she did not remain fixed on those thoughts. Carlos believes that she sleeps well. The family and extended family all care for her including providing for her meals and safety checks. He believes that she does well at home with this support and is in favor of adding no medications at this time. At the time of my visit, the patient is seated at the bedside and eating her lunch. She is cooperative, alert. She is pleasant in her interaction, slightly hard of hearing. She is manipulating utensils without any problems, swallowing without difficulty. She is oriented to person, place and date. She indicates that she thinks the doctors will discharge her. Today, she denies any fearful thoughts, fears for her safety or overt auditory or visual hallucinations. She describes her mood as "okay." She reports good appetite and sleep. She denies anxiety. She feels well cared for by her family and plans to return home. CURRENT MEDICATIONS: 1. Lipitor 40 mg q.a.m. 2. Aspirin 81 mg q.a.m. 3. Celexa 10 mg daily. 4. Protonix 40 mg daily. 5. Prednisone 40 mg daily. 6. Ativan 0.5 mg b.i.d. 7. Eliquis 5 mg b.i.d. PAST PSYCHIATRIC HISTORY: The patient has never seen a mental health professional, never been hospitalized for mental health reasons nor made a suicide attempt. ACCESS TO GUNS: Denies. ALLERGIES: EXTENSIVE, PLEASE SEE EMR. PAST MEDICAL HISTORY: 1. History of PE, on Eliquis. 2. Dyslipidemia. 3. Polymyalgia rheumatica, on chronic steroids. 4. Hypertension. 5. GERD. 6. History of migraines. FAMILY HISTORY: Denies for psychiatric issues, substance use or suicide. SUBSTANCE USE HISTORY: The patient does not drink nor use drugs. PERSONAL HISTORY: The patient grew up in [place]. She is a high school graduate. 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 She is . She has 6 children and many grandchildren and great grandchildren. She is a very spiritual individual. There are no legal concerns. Psychological trauma history is denied. MENTAL STATUS EXAMINATION: An 89-year-old woman who looks somewhat younger than her stated age, seated at the bedside. Eye contact is good. No abnormal muscle movements. She is not observed to be walking but is able to sit with appropriate posture at the bedside. Speech is of normal rate, volume and tone. She is mildly hard of hearing. Affect is restricted but able to smile. Mood is "okay." Thought process is organized and goal directed in response to questions. She currently denies auditory or visual hallucinations or any sense of paranoia. She denies thoughts, plans, or intent to harm herself or anyone else. Today, she is fully oriented. Memory functions appear to be intact per conversation. Fund of knowledge is intact. Intelligence is estimated to be average. Insight and judgment are limited. VITAL SIGNS: Temp 37.0, pulse 76, respirations 18, blood pressure 120/68. LABORATORIES: 1. CBC with diff -- RBCs low at 4.18, hemoglobin and hematocrit low at 9.9 and 31.0, MCV low at 74.2, MCH low at 23.7. 2. Chem profile -- notable for calcium low at 8.3. 3. Lipid panel -- notable only for cholesterol 216. 4. Drug screen negative. 5. Urinalysis -- positive for 3+ bacteria, 5-10 epithelials and positive nitrites. 6. Coag studies -- within normal limits with an INR of 1.2. PERTINENT IMAGIN. Head CT -- no acute intracranial findings. 2. Head MRA: No abrupt vessel cutoff or intracranial aneurysm identified. Study mildly compromised by motion artifact. 3. Brain MRI: No acute intracranial findings. Mild atrophy and small vessel disease. Several calvarial lesions indeterminate and correlation with history of malignancy is recommended. Differential considerations include malignant and benign etiologies. Nonemergent whole body bone scan might be considered for further evaluation. REVIEW OF SYSTEMS: The patient has no complaints today. PHYSICAL EXAMINATION: As per Dr. Aragon. IMPRESSION: An 89-year-old woman admitted to the hospital with left-sided abrupt onset head pain. She was diagnosed with urinary tract infection. Neuro workup for cerebrovascular accident/transient ischemic attack is negative. We have been consulted due to her reports of delusions and change in mental status. At the time I see her, she is perfectly compliant. It is noted in Dr. Garcia's note that he sees her as delirious and sundowning. I talked with the son and he believes that she has been relatively stable at home, denies that she has sundowning behaviors. He has had no firsthand knowledge of any behavioral disruption or additional hallucinations or delusions at home other than the 2 episodes stated in the chart. At this point, I will not make any recommendations for medications as the family would like to continue to manage her behaviorally at home in a loving care of their extended family. I have talked with him about the potential use of such medicines as Seroquel in the future if dementia becomes more prominent or if she has problems with day-night cycle. DIAGNOSES: 1. Delirium, secondary to urinary tract infection, age, change in environment and other medical conditions. 2. ? underlying mild dementia with delusions. PLAN: Has been reviewed with Dr. Lorna Díaz. 1. Altered mental status -- appears to be in the context of UTI and other conditions such as age, change in environment. I agree that she certainly has had some delusional ideation that could be a symptom of an underlying dementia; however, the family is at this point managing her beautifully at home with reality orientation and frequent supervisions. At the age of 89, I am hesitant to add an atypical antipsychotic at this time unless her behavior becomes unsafe in some way. For now, we will make no medication recommendations, suggested continue on the Celexa. We would like to see over time the Ativan weaned off as this is certainly putting her at higher risk for falls and altered mental status. We thank you for allowing us to participate in this woman's care.
[2016-11-11 18:03] LABS: ALBUMIN 3.9 G/DL (3.8-4.8); GAMMA GLOBULIN 0.8 G/DL (0.8-1.7); TOTAL PROTEIN 6.9 G/DL (6.2-8.3)
[2017-06-05] MEDS ORDERED: DONE10TA12 PO (13:45)
[2017-06-05] MEDS ORDERED: NITR100C2 PO (13:45)
[2017-06-05] MEDS ORDERED: PRED10TA PO (13:45)
[2017-06-05] MEDS ORDERED: NMN10 PO (13:45)
[2017-06-05] MEDS ORDERED: LORA-741 PO (13:45)
[2017-06-05] MEDS ORDERED: APIX1TAB PO (13:45)
[2017-06-05] MEDS ORDERED: PLN/10 PO (15:46)
[2017-06-08] MEDS ORDERED: LORA-741 PO (17:49)
== END 2016-11-11 13:42 | disposition home or self-care (01) | DRG 689 ==
LOC: ENRESERVDT → ENRESERVTM → EDBD 11:04 → C.EDC 11:05 → C.2T 13:09 → EDBEDREQ 13:15
PROVIDERS: ADMIT Internal Medicine; ATTEND Family Medicine
DX: N39.0 Urinary tract infection, site not specified (principal); G93.41 Metabolic encephalopathy; F05 Delirium due to known physiological condition; B96.20 Unspecified Escherichia coli [E. coli] as the cause of diseases classified elsewhere; R51 Headache; R47.81 Slurred speech; I16.0 Hypertensive urgency; I10 Essential (primary) hypertension; G25.0 Essential tremor; R90.89 Other abnormal findings on diagnostic imaging of central nervous system; G43.909 Migraine, unspecified, not intractable, without status migrainosus; M35.3 Polymyalgia rheumatica; K21.9 Gastro-esophageal reflux disease without esophagitis; E78.5 Hyperlipidemia, unspecified; F03.90 Unspecified dementia, unspecified severity, without behavioral disturbance, psychotic disturbance, mood disturbance, and anxiety; Z86.711 Personal history of pulmonary embolism; Z79.01 Long term (current) use of anticoagulants; Z79.52 Long term (current) use of systemic steroids; Z79.890 Hormone replacement therapy; Z79.899 Other long term (current) drug therapy; Z79.891 Long term (current) use of opiate analgesic